=== PATIENT | female | born 1995 | race Caucasian/White ===

== ENCOUNTER 2025-01-02 19:44 | Emergency (ER) | payer OTHER, SELFPAY ==
--- NOTE | ~2025-01-02 | XR_ITS ---
XR hand LT 2V 01/03/2025 00:33 INDICATION: Left hand injury PROCEDURE: 3 views left hand COMPARISON: No prior studies for comparison. FINDINGS: Fracture, dislocation or subluxation is not identified. The soft tissues appear within norm al limits. No foreign bodies are identified. IMPRESSION: 1: NO ACUTE BONE OR JOINT ABNORMALITY IDENTIFIED. Reviewed, dictated and finalized at location A.
[2025-01-02 19:48] VITALS: BP 161/107; PULSE 110; RESP 18; TEMP 36.4; O2SAT 100
--- NOTE | 2025-01-02 19:59 | PC.NURSE ---
wound cleaned and pressure dressing applied
[2025-01-02 21:52] VITALS: BP 163/114; PULSE 96; RESP 20; TEMP 36.3; O2SAT 100
--- OUTSIDE RECORDS SUMMARY | 2025-01-03 00:20 | XMS_ITS | Encounter Summary ---
Author Organization [facility] Address [address] [facility] [place] [address] Care Team Providers Care Turbo Operator Name Role Phone Preethi James MD Unavailable [phone] Barbara Villalobos MD Primary Care Provider Encounter Details Date Type Department Care Team (Late st Contact Info) Description 12/25/2024 Results Follow-Up [facility] - Family Medicine [address], [address] [phone] Barbara Villalobos MD [address] [place] [address] Social History Tobacco Use Types Packs/Day Years Used Date Smoking Tobacco: Never Smokeless Tobacco: Never Alcohol Use Standard Drinks/Week Comments Yes 3 (1 standard drink = 0.6 oz pur e alcohol) PHQ-2 Answer Date Recorded Patient Health Questionnaire-2 Score 2 12/23/2024 Comments Unknown Sex and Gender Information Value Date Recorded Sex Assigned at Not on file 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 No significant abnormalities, based on your fasting lipid profile we recommend low-fat/cholesterol diet for instance Mediterranean diet. I will discuss results on follow-up visit documented in this encounter Plan of Treatment Upcoming Encounters Date Type Department Care Team (Late st Contact Info) Description 03/25/2025 8:40 AM CDT Office Visit [facility] - Family Medicine [address] [phone] Barbara Villalobos MD [address] [place] [address] documented as of this encounter Visit Diagnoses Not on filedocumented in this encounter Care Teams Turbo Operator Relationship Specialty Start Date End Date Preethi James MD [address] [place] [phone] PCP - Attributed-[facility] STL 06/18/24 Barbara Villalobos MD [address] [place] [address] PCP - General Internal Medicine 12/23/24 documented as of this encounter
--- OUTSIDE RECORDS SUMMARY | 2025-01-03 00:20 | XMS_ITS | Clinical Summary ---
Author Organization [facility] Address [address] [facility] [place] [address] Care Team Providers Care Monotype Keyboard Operator Name Role Phone Preethi James MD Unavailable [phone] Barbara Villalobos MD Primary Care Provider Source Comments [facility] [employer],non-owned Affiliates and Associated Physician Practices is amultiple site organization consisting of ambulatory clinics and hospital sitesin [place], [place], [place] and [place]. This disclosure is being madepursuant to the Care Everywhere program and may not contain all information available regarding this patient. Last updated 18.[facility] [employer] Allergies No known active allergies Medications * Be aware that medications may not be up to date on this document. Alwaysverify current medications with the patient. tirzepatide (Zepbound) 10 MG/0.5ML injection Inject 10 (ten) mg subcutaneously every 7 days (once a week) Active vilazodone (Viibryd) 40 MG tablet TAKE 1 TABLET BY MOUTH DAILY WITH FOOD 90 tablet 1 12/24/19 25 Active amphetamine-dext roamphetamine XR 24hr (Adderall XR) 30 MG capsuleIndicatio ns:Attention deficit hyperactivity disorder (ADHD), combined type Take 1 (one) capsule by mouth 2 times daily 60 capsule 5 8:18 AM CDT 12/24/19 25 Active buPROPion XL 24hr (Wellbutrin-XL) 300 MG tablet Take 1 (one) tablet by mouth once daily 90 tablet 1 12/24/19 25 Active hydrOXYzine HCl (Atarax) 25 MG tablet Take 1 (one) tablet by mouth every 8 hours as needed 90 tablet 1 12/24/19 25 Active traZODone (Desyrel) 50 MG tablet Take 1 (one) tablet by mouth at bedtime 90 tablet 1 12/24/19 25 Active metoprolol succinate XL 24hr (Toprol XL) 100 MG tablet Take 1 (one) tablet by mouth once daily 90 tablet 1 12/24/19 25 Active vilazodone (Viibryd) 40 MG tablet TAKE 1 TABLET BY MOUTH DAILY WITH FOOD 90 tablet 9:41 AM POT FISHER 07/29/19 25 025 Discontin ued(Reord er) amphetamine-dext roamphetamine XR 24hr (Adderall XR) 30 MG capsule Take 1 (one) capsule by mouth 11/04/19 25 025 Discontin ued(Reord er) buPROPion XL 24hr (Wellbutrin-XL) 300 MG tablet Take 1 (one) tablet by mouth once daily 11/24/19 25 025 Discontin ued(Reord er) hydrOXYzine HCl (Atarax) 25 MG tablet Take 1 (one) tablet by mouth every 8 hours as needed 04/17/20 24 025 Discontin ued(Reord er) metoprolol succinate XL 24hr (Toprol XL) 100 MG tablet Take 1 (one) tablet by mouth once daily 03/19/20 24 025 Discontin ued(Reord er) traZODone (Desyrel) 50 MG tablet Take 1 (one) tablet by mouth 08/31/19 25 025 Discontin ued(Reord er) Qelbree 200 MG capsule TAKE 1 CAPSULE BY MOUTH DAILY. SWALLOW WHOLE OR SPRINKLE CONTENTS OVER A TEASPOONFUL OF APPLESAUCE 11/27/19 25 025 Discontin ued(Clini amanda Decision) Active Problems Problem Noted Date Diagnosed Date Controlled substance agreement signed 12/23/2024 Class 3 severe obesity due t o excess calories with serious comorbidity and body mass index (BMI) of 45.0 to 49.9 in adult 12/23/2024 Primary hypertension 12/23/2024 Moderate episode of recurrent major depressive d isorder 12/23/2024 Attention deficit hyperactiv ity disorder (ADHD), combined type 12/23/2024 Vitamin D deficiency 12/23/2024 Encounters Date Type Department Care Team Description 12/25/2024 Results Follow-Up [facility] [address], [address] [place] [phone] Barbara Franks MD 12/23/2024 8:40 AM CDT Office Visit [facility] [address], [address] [place] [phone] Barbara Franks MD Encounter to establish care (Primary Dx); Healthcare maintenance; Class 3 severe obesity due to excess calories with serious comorbidity and body mass index (BMI) of 45.0 to 49.9 in adult (HCC); Primary hypertension; Moderate episode of recurrent major depressive disorder (HCC); Attention deficit hyperactivity disorder (ADHD), combined type; Vitamin D deficiency; Screening for diabetes mellitus; Controlled substance agreement signed 12/23/2024 Travel from Last 3 Months Immunizations Immunization Administration Dates Next Due Degreed primary monoval ent 12+ yr 0.3mL Purple cap 02/25/2021,02/04/2021 DTP HIB, HISTORIC VACCINE 12/07/1994 DTP, HISTORIC VACCINE 02/27/1994,1993,12/1993 HEP B VACCINE, ADULT 3 DOSE 1993, 4,1993 HIB VACCINE 02/27/1994,1993 INFLUENZA VACCINE, QUADR. (A FLURIA, FLUZONE QUADRIVALENT; 6MO+) (IIV4) 03/24/2021 INFLUENZA VACCINE, QUADR. (F LUZONE; FLULAVAL; FLUARIX; AFLURIA QUADRIVALENT; 6MO+), 0.5 ML (IIV4) 04/09/2022 MMR VACCINE 12/07/1994 POLIO OPV 02/27/1994,1993,1993 Family History Medical History Relation Name Comments Anxiety Disorder Father CAD (Coronary Artery Disease) Father Depression Father Hypertension Father Cancer - Breast Maternal Grandmother Cancer - Ovarian Maternal Grandmother Anxiety Disorder Mother Depression Mother Cancer - Lung Paternal Grandfather Relation Name Status Comments Father Alive Maternal Grandmother Mother Alive Paternal Grandfather Social History Tobacco Use Types Packs/Day Years Used Date Smoking Tobacco: Never Smokeless Tobacco: Never Tobacco Cessation:Counseling Given: Not Answered Alcohol Use Standard Drinks/Week Comments Yes 3 (1 standard drink = 0.6 oz pur e alcohol) PHQ-2 Answer Date Recorded Patient Health Questionnaire-2 Score 2 12/23/2024 Comments Unknown Sex and Gender Information Value Date Recorded Sex Assigned at Not on file Legal Sex Female 9:47 AM POT FISHER Gender Identity Not on file Sexual Orientation Not on file Last Filed Vital Signs Vital Sign Reading Time Taken Comments Blood Pressure 134/88 12/23/2024 8:42 AM CDT Pulse 74 12/23/2024 8:42 AM CDT Temperature 36.7 C (98 F) 12/23/2024 8:42 AM CDT Respiratory Rate - - Oxygen Saturation 99% 12/23/2024 8:42 AM CDT Inhaled Oxygen Concentration - - Weight 129.3 kg (285 lb) 12/23/2024 8:42 AM CDT Height 161.3 cm (5' 3.5) 12/23/2024 8:42 AM CDT Body Mass Index 49.69 12/23/2024 8:42 AM CDT Plan of Treatment Upcoming Encounters Date Type Department Care Team (Late st Contact Info) Description 03/25/2025 8:40 AM CDT Office Visit [facility] - Family Medicine [address], [address] [phone] Barbara Villalobos MD [address] [place] [address] Health Maintenance Due Date Last Done Comments DTAP/TDAP/TD VACCINES (5 - Tdap) 2004 12/07/1994, 02/27/1994, 1993, Additional history exists PAP SMEAR 2014 HPV VACCINE (1 - 3-dose SCDM series) 2020 COVID-19 VACCINE (3 - season) 2024 02/25/2021, 02/04/2021 INFLUENZA VACCINE (#1) 2025 04/09/2022, 2020 ZOSTER VACCINE (1 of 2) 2043 HEPATITIS B VACCINE Completed 1993, 1993, 1993 HIB VACCINE Completed 12/07/1994, 02/16, 1993 DEPRESSION SCREENING Completed 12/23/2024 HEPATITIS C SCREENING Completed 12/23/2024 HIV SCREENING Completed 12/23/2024 MENINGOCOCCAL (Group B) VACCINE SHARED DECISION-MAKING Aged Out No longer eligible based on patient's age to complete this topic MENINGOCOCCAL GROUPS A/C/Y/W VACCINE Aged Out No longer eligible based on patient's age to complete this topic PNEUMOCOCCAL VACCINE Aged Out No long er eligible based on patient's age to complete this topic Procedures Procedure Name Priority Date/Time Associated Diagnosis Comments DRUG ABUSE URINE SCREEN 10 Routine 12/23/2024 9:51 AM CDT Attention deficit hyperactivity disorder (ADHD), combined type VITAMIN D 25-HYDROXY Routine 12/23/2024 9:50 AM CDT Vitamin D deficiency HIV-1 HIV-2 ANTIBODY + HIV P24 AG PANEL Routine 12/23/2024 9:50 AM CDT Healthcare maintenance TSH REFLEX FREE T4 Routine 12/23/2024 9: 50 AM CDT Primary hypertension LIPID PROFILE Routine 12/23/2024 9:50 AM CDT Primary hypertension HEPATITIS C ANTIBODY W RFLX PCR Routine 12/23/2024 9:50 AM CDT Healthcare maintenance HEMOGLOBIN A1C Routine 12/23/2024 9:50 AM CDT Class 3 severe obesity due to excess calories with serious comorbidity and body mass index (BMI) of 45.0 to 49.9 in adult (HCC) Primary hypertension COMPREHENSIVE METABOLIC PANEL Routine 12/23/2024 9:50 AM CDT Primary hypertension Moderate episode of recurrent major depressive disorder (HCC) CBC W AUTO DIFFERENTIAL Routine 12/23/2024 9:50 AM CDT Primary hypertension Moderate episode of recurrent major depressive disorder (HCC) from Last 3 Months Results * DRUG ABUSE URINE SCREEN 10 (12/23/2024 9:51 AM CDT) Amphetamines Screen Urine Negative Cutoff=10 00 ng/mL [facility] INSURANCE BILL Barbiturates Screen Urine Negative Cutoff=20 0 ng/mL [facility] INSURANCE BILL Benzodiazepines Screen Urine Negative Cutoff=20 0 ng/mL [facility] INSURANCE BILL Cannabinoids Screen Urine Negative Cutoff=20 ng/mL [facility] INSURANCE BILL Cocaine Metabolite Screen Urine Negative Cutoff=30 0 ng/mL [facility] INSURANCE BILL Opiate Screen Urine Negative Cutoff=30 0 ng/mL [facility] INSURANCE BILL Comment:Opiate test includes Codeine, Morphine, Hydromorphone, Hydrocodone. Oxycodone/Oxymorpho ne Urine Negative Cutoff=10 0 ng/mL [facility] INSURANCE BILL Comment:Test includes Oxycod one and Oxymorphone Phencyclidine Screen Urine Negative Cutoff=25 ng/mL [facility] INSURANCE BILL Methadone Screen Urine Negative Cutoff=30 0 ng/mL [facility] INSURANCE BILL Propoxyphene Screen Urine Negative Cutoff=30 0 ng/mL [facility] INSURANCE BILL Creatinine Urine 111.9 20.0 - 300.0 mg/dL [facility] INSURANCE BILL pH Urine 8.7 4.5 - 8.9 [facility] INSURANCE BILL Note Comment [facility] INSURANCE BILL Comment: This assay provides a preliminary unconfirmed analytical test result that may be suitable for clinical management of patients in certain situations. Drug-test results should be interpreted in the context of clinical information. Patient metabolic variables, specific drug chemistry, and specimen characteristics can affect test outcome. Technical consultation is available if a test result is inconsistent with an expected outcome. Email: [email or web address] Urine URINE / Unknown 12/23/2024 9 :51 AM CDT 12/23/2024 Narrative [facility] INSURANCE BILL - 12/24/2024 9:08 PM CDT Performed at: - [facility] [address] [place], [place] [id number] Remote Inpatient Coder: Tori Marie PhD, Phone: [phone] Barbara Villalobos MD LAB - URINE CHEMISTRY O RDERABLES Final Result [facility] INSURANCE BILL [address] [place] [address] * HEPATITIS C ANTIBODY W RFLX PCR (12/23/2024 9:50 AM CDT) Pathologist [facility] Hepatitis C Antibody Non Reactive Non Reactive [facility] INSURANCE BILL Comment: Performed at: - [address] [id number] Remote Inpatient Coder: Wing Mckeon PhD, Phone: [phone] Interpretation Comment [facility] INSURANCE BILL Comment: Not infected with HCV unless early or acute infection is suspected (which may be delayed in an immunocompromised individual), or other evidence exists to indicate HCV infection. Blood BLOOD SPECIMEN / Unknown 12/23/2024 9:50 AM CDT 12/23/2024 Narrative [facility] INSURANCE BILL - 12/24/2024 10:10 AM CDT Performed at: [address] [id number] Remote Inpatient Coder: Wing Mckeon PhD, Phone: [phone] Barbara Villalobos MD LAB - CHEMISTRY ORDERAB LES Final Result Performing Organization Address City/[facility] Co de Phone Number [facility] INSURANCE BILL [address] [place] [address] * HIV-1 HIV-2 ANTIBODY + HIV P24 AG PANEL (12/23/2024 9:50 AM CDT) [facility] HIV Screen 4th Generation w Reflex Non Reactive Non Reactive [facility] INSURANCE BILL Comment: HIV-1/HIV-2 antibodies and HIV-1 p24 antigen were NOT detected. There is no laboratory evidence of HIV infection. HIV Negative Blood BLOOD SPECIMEN / Unknown 12/23/2024 9:50 AM CDT 12/23/2024 Narrative [facility] INSURANCE BILL - 12/24/2024 9:10 AM CDT Performed at: [address] [id number] Remote Inpatient Coder: Wing Mckeon PhD, Phone: [phone] Barbara Villalobos MD LAB - CHEMISTRY ORDERAB LES Final Result Performing Organization Address City/[facility] Co de Phone Number [facility] INSURANCE BILL [address] [place] [address] * TSH REFLEX FREE T4 (12/23/2024 9:50 AM CDT) Pathologist [facility] TSH 1.300 0.450 - 4.500 uIU/mL [facility] INSURANCE BILL Blood BLOOD SPECIMEN / Unknown 12/23/2024 9:50 AM CDT 12/23/2024 Narrative [facility] INSURANCE BILL - 12/24/2024 9:10 AM CDT Performed at: [address] [id number] Remote Inpatient Coder: Wing Mckeon PhD, Phone: [phone] us Barbara Villalobos MD LAB - CHEMISTRY ORDERAB LES Final Result Performing Organization Address [facility] de Phone Number [facility] INSURANCE BILL [address] [place] [address] * HEMOGLOBIN A1C (12/23/2024 9:50 AM CDT) [facility] Hemoglobin A1c 5.0 4.8 - 5.6 % [facility] INSURANCE BILL Comment: Prediabetes: 5.7 - 6.4 Diabetes: >6.4 Glycemic control for adults with diabetes: <7.0 Blood BLOOD SPECIMEN WITH EDTA / Unknown 12/23/2024 9:50 AM CDT 12/23/2024 Narrative [facility] INSURANCE BILL - 12/24/2024 7:09 AM CDT Performed at: - [address] [id number] Remote Inpatient Coder: Wing Mckeon PhD, Phone: [phone] us Barbara Villalobos MD LAB - CHEMISTRY ORDERAB LES Final Result Performing Organization Address City/[facility]/ZIP Co de Phone Number [facility] INSURANCE BILL [address] [place] [address] * VITAMIN D 25-HYDROXY (12/23/2024 9:50 AM CDT) Vitamin D, 25 Hydroxy 36.2 30.0 - 100.0 ng/mL [facility] INSURANCE BILL Comment: Vitamin D deficiency has been defined by the [place] of [employer] and an Endocrine Society practice guideline as a level of serum 25-OH vitamin D less than 20 ng/mL (1,2). The Endocrine Society went on to further define vitamin D insufficiency as a level between 21 and 29 ng/mL (2). 1. IOM ([place] of [employer]). 2010. Dietary reference intakes for calcium and D. [place]: The National Academies Press. 2. Antonio MF, Yuliet CUEVAS, Deepthi ULLOA, et al. Evaluation, treatment, and prevention of vitamin D deficiency: an Endocrine Society clinical practice guideline. JCEM. 2010; 96(7):1911-30. Blood BLOOD SPECIMEN / Unknown 12/23/2024 9:50 AM CDT 12/23/2024 Narrative [facility] INSURANCE BILL - 12/24/2024 7:09 AM CDT Performed at: [address] [place] [id number] Remote Inpatient Coder: Wing Mckeon PhD, Phone: [phone] us Barbara Villalobos MD LAB - CHEMISTRY ORDERAB LES Final Result [facility] INSURANCE BILL [address] [place] [address] * (ABNORMAL) CBC WITH DIFFERENTIAL (12/23/2024 9:50 AM CDT) WBC 11.4(H) 3.4 - 10.8 x10E3/uL [facility] INSURANCE BILL RBC 4.32 3.77 - 5.28 x10E6/uL [facility] INSURANCE BILL Hemoglobin 13.8 11.1 - 15.9 g/dL [facility] INSURANCE BILL Hematocrit 42.6 34.0 - 46.6 % [facility] INSURANCE BILL MCV 99(H) 79 - 97 fL [facility] INSURANCE BILL MCH 31.9 26.6 - 33.0 pg [facility] INSURANCE BILL MCHC 32.4 31.5 - 35.7 g/dL [facility] INSURANCE BILL RDW 13.3 11.7 - 15.4 % [facility] INSURANCE BILL Platelet Count 366 150 - 450 x10E3/uL [facility] INSURANCE BILL Granulocytes % 76 Not Estab. % [facility] INSURANCE BILL Lymphocytes % 16 Not Estab. % [facility] INSURANCE BILL Monocytes % 7 Not Estab. % [facility] INSURANCE BILL Eosinophils % 1 Not Estab. % [facility] INSURANCE BILL Basophils % 0 Not Estab. % [facility] INSURANCE BILL Granulocytes Absolute 8.6(H) 1.4 - 7.0 x10E3/uL [facility] INSURANCE BILL Lymphocytes Absolute 1.8 0.7 - 3.1 x10E3/uL [facility] INSURANCE BILL Monocytes Absolute 0.8 0.1 - 0.9 x10E3/uL [facility] INSURANCE BILL Eosinophils Absolute 0.1 0.0 - 0.4 x10E3/uL [facility] INSURANCE BILL Basophils Absolute 0.0 0.0 - 0.2 x10E3/uL [facility] INSURANCE BILL Immature Granulocytes 0 Not Estab. % [facility] INSURANCE BILL Immature Granulocytes Absolute 0.0 0.0 - 0.1 x10E3/uL [facility] INSURANCE BILL Blood BLOOD SPECIMEN / Unknown 12/23/2024 9:50 AM CDT 12/23/2024 Narrative [facility] INSURANCE BILL - 12/24/2024 7:09 AM CDT Performed at: [id number] [place], [place] [id number] Remote Inpatient Coder: Wing Mckeon PhD, Phone: [phone] us Barbara Villalobos MD LAB - HEMATOLOGY ORDERA BLES Final Result [facility] INSURANCE BILL [address] [place] [address] * COMPREHENSIVE METABOLIC PANEL (12/23/2024 9:50 AM CDT) [facility] Glucose 91 70 - 99 mg/dL [facility] INSURANCE BILL BUN 7 6 - 20 mg/dL [facility] INSURANCE BILL Creatinine 0.82 0.57 - 1.00 mg/dL [facility] INSURANCE BILL eGFR by CKD-EPI 98 >59 mL/min/1.7 3 [facility] INSURANCE BILL BUN/Creatinine Ratio 9 9 - 23 [facility] INSURANCE BILL Sodium 137 134 - 144 mmol/L [facility] INSURANCE BILL Potassium 4.6 3.5 - 5.2 mmol/L [facility] INSURANCE BILL Chloride 101 96 - 106 mmol/L [facility] INSURANCE BILL CO2 20 20 - 29 mmol/L [facility] INSURANCE BILL Calcium 9.3 8.7 - 10.2 mg/dL [facility] INSURANCE BILL Protein Total 7.2 6.0 - 8.5 g/dL [facility] INSURANCE BILL Albumin 4.6 3.9 - 4.9 g/dL [facility] INSURANCE BILL Globulin Total 2.6 1.5 - 4.5 g/dL [facility] INSURANCE BILL Bilirubin Total 0.5 0.0 - 1.2 mg/dL [facility] INSURANCE BILL Alkaline Phosphatase 104 44 - 121 IU/L [facility] INSURANCE BILL AST 24 0 - 40 IU/L [facility] INSURANCE BILL ALT 25 0 - 32 IU/L [facility] INSURANCE BILL Blood BLOOD SPECIMEN / Unknown 12/23/2024 9:50 AM CDT 12/23/2024 Narrative [facility] INSURANCE BILL - 12/24/2024 8:11 AM CDT Performed at: [id number] [place], [place] [id number] Remote Inpatient Coder: Wing Mckeon PhD, Phone: [phone] us Barbara Villalobos MD LAB - CHEMISTRY ORDERAB LES Final Result [facility] INSURANCE BILL [address] [place] [address] * (ABNORMAL) LIPID PROFILE (12/23/2024 9:50 AM CDT) [facility] Cholesterol 236(H) 100 - 199 mg/dL [facility] INSURANCE BILL Triglycerides 84 0 - 149 mg/dL [facility] INSURANCE BILL HDL Cholesterol 87 >39 mg/dL [facility]URANCE B[facility] VLDL Calculated 14 5 - 40 mg/dL [facility] INSURANCE BILL LDL Calculated 135(H) 0 - 99 mg/dL [facility] INSURANCE BILL Blood BLOOD SPECIMEN / Unknown 12/23/2024 9:50 AM CDT 12/23/2024 Narrative [facility] INSURANCE BILL - 12/24/2024 8:11 AM CDT [facility]formed [facility]: [facility] [address] [place], [place] [id number] Remote Inpatient Coder: Wing Mckeon PhD, Phone: [phone] us Barbara Villalobos MD LAB - CHEMISTRY ORDERAB LES Final Result [facility] INSURANCE BILL [address] [place] [address] from Last 3 Months Insurance [facility] Care Teams Monotype Keyboard Operator Relationship Specialty Start Date End Date Preethi James MD [address] [place] [phone] PCP - Attributed-[facility]HP STL 06/18/24 Barbara Villalobos MD [address] [place] [address] PCP - General Internal Medicine 12/23/24
--- NOTE | 2025-01-03 00:30 | ED_ITS ---
HPI - Wound/Laceration General Chief Complaint: Wound/Laceration Stated Complaint: sliced finger on wine glass Time Seen by Provider: 01/02/25 23:55 History of Present Illness HPI narrative: Patient is a 29-year-old female who presents to the ER with left hand 3rd and 4th digit lacerations. She reports she was drawing a wine glass at home when the stem broke off and sliced her two fingers. Patient endorses full range of motion. She endorses pain to the sites, but no radiating pain. Patient reports she is unsure when she last had her Tdap vaccination. She endorses a history of depression anxiety, for which she is medicated. Patient denies any previous injuries to her 3rd and 4th digits, significant swelling, or purulent drainage coming from the site. Related Data Allergies Allergy/AdvReac Type Severity Reaction Status Date / Time No Known Allergies Allergy Verified 01/03/25 00:41 Review of Systems Review of Systems: All systems reviewed & are unremarkable except as noted in HPI and below Exam Narrative: GENERAL: Well appearing, well-nourished, non-toxic, in no acute distress. HEAD: Normocephalic, atraumatic. NECK: Supple. No adenopathy, no masses. RESPIRATORY: Airway patent, respirations nonlabored. Clear to auscultation bilaterally, no rales, rhonchi, wheezing. CARDIOVASCULAR: Regular rate and rhythm without murmurs, rubs, or gallops. Peripheral pulses 2+ and equal bilaterally. ABDOMINAL: Soft, nontender, nondistended, no hepatosplenomegaly. Normoactive BS. MUSCULOSKELETAL: Moves all extremities. Strength/ROM intact without gross deformities. SKIN: Warm, dry, normal color. No rashes. Puncture wound to left 3rd digit palmar side in between dip and pip joints. Linear laceration to 4th digit approximately 1/2 cm. NEURO: A&O X3. Speech clear. Cranial nerves II-XII intact. No ataxic movements. PSYCHIATRIC: Appropriate mood and affect. Normal interaction. Course Vital Signs Vital signs: Vital Signs Temperature 36.4 C 01/02/25 19:48 Pulse Rate 110 H 01/02/25 19:48 Respiratory Rate 18 01/02/25 19:48 Blood Pressure 161/107 H 01/02/25 19:48 Pulse Oximetry 100 01/02/25 19:48 Oxygen Delivery Room Air 01/02/25 19:48 Temperature 36.3 C L 01/02/25 21:52 Pulse Rate 96 01/02/25 21:52 Respiratory Rate 20 01/02/25 21:52 Blood Pressure 163/114 H 01/02/25 21:52 Pulse Oximetry 100 01/02/25 21:52 Oxygen Delivery Room Air 01/02/25 19:48 Procedures Laceration Laceration 1: Date: 01/03/25 Time: 03:20 Site: hand Side (If applicable): left Size (cm): 1.5 Description: linear Depth: simple, single layer Local Anesthetic: lidocaine 1% Amount of anesthesia used (mL): 4 Pre-repair: irrigated extensively ====== Skin Level ====== Skin layer closed with: nylon Size (cm): 5-0 Number of sutures: 4 Technique: simple, interrupted ====== Subcutaneous Layer ====== ====== Muscle Layer ====== ====== Tendon Layer ====== Laceration 2: Date: 01/03/25 Time: 03:21 Site: hand Side (If applicable): left (middle finger) Size (cm): 0.5 Description: linear Depth: simple, single layer Local Anesthetic: lidocaine 1% Amount of anesthesia used (mL): 4 Pre-repair: irrigated extensively ====== Skin Level ====== Skin layer closed with: nylon Size (cm): 5-0 Number of sutures: 1 Technique: simple, interrupted ====== Subcutaneous Layer ====== ====== Muscle Layer ====== ====== Tendon Layer ====== MDM - Wound/Laceration MDM Narrative Medical decision making narrative: Patient is a 29-year-old female who presents to the ER with left hand 3rd and 4th digit lacerations. She reports she was drawing a wine glass at home when the stem broke off and sliced her two fingers. Patient endorses full range of motion. She endorses pain to the sites, but no radiating pain. Patient reports she is unsure when she last had her Tdap vaccination. She endorses a history of depression anxiety, for which she is medicated. Patient denies any previous injuries to her 3rd and 4th digits, significant swelling, or purulence drainage coming from the site. Labs Ordered: None necessary Imaging Ordered: Left hand x-ray Medications Ordered: Toradol 60 mg IM, Tdap, lidocaine 1% infiltrated Results: Patient's left hand x-ray indicates no acute abnormalities nor foreign bodes. Diagnosis: Left middle finger laceration, left ring finger laceration Patient Education/Shared MDM: Results of imaging shared with patient. Patient was given her Tdap vaccine here. Four sutures were placed in patient left ring finger, 1 suture was placed and patient's left middle finger. Patient tolerated procedure well. She endorses improvement of symptoms following medication administration. Patient strongly advised to follow-up with their PCP and 10-14 days for suture removal. She will be discharged home with a prescription for Mupirocin. Patient was advised to refrain from doing any heavy lifting while her sutures are in place. Strict return precautions provided. Patient verbalized understanding and is in agreement with plan. Vital signs stable at time of discharge. All questions answered. Differential Diagnosis Differential diagnosis: Likely laceration, abrasion and avulsion of skin Imaging Data Attestation: I personally reviewed and interpreted this imaging study as follows: Radiologist's impression: No acute abnormalities Discharge Plan Discharge Clinical Impression: Laceration, Injury of left ring finger, Injury of left middle finger Patient Disposition: Home Condition: Stable Instructions: Antibiotic Form, Care For Your Stitches (ED) Additional Instructions: Please return to the ER with any worsening symptoms. Follow-up with primary care provider in 10-14 days for suture removal. Please keep your wound clean and dry. You may place Mupirocin cream on the sites twice a day. Take all medications as prescribed, including regularly scheduled medications. You may use Tylenol and ibuprofen together for pain control over the next couple of days. Patient Language: Bulgarian Prescriptions: New mupirocin [Centany] 2 % ointment 1 applic topical BID Qty: 22 0RF Follow-up/Referrals: PHYSICIAN,[facility] [Primary Care Provider] - Stand Alone Forms: Work/School Release IP Time of Disposition: 03:27
[2025-01-03] MEDS: TETANUS,DIPHTHERIA,AC PERTUSSIS ADULT (0.5 ML) BOOSTRIX IM (00:39)
[2025-01-03] MEDS: KETOROLAC (*BKC) 60 MG/2 ML VIAL IM (00:39)
[2025-01-03 03:41] VITALS: BP 130/84; PULSE 100; RESP 18; O2SAT 100
== END 2025-01-03 03:43 | disposition home or self-care (01) ==
PROVIDERS: Emergency Provider Registered Nurse
DX: S61.213A Laceration without foreign body of left middle finger without damage to nail, initial encounter (principal); S61.215A Laceration without foreign body of left ring finger without damage to nail, initial encounter; Z23 Encounter for immunization; F41.9 Anxiety disorder, unspecified; F32.A Depression, unspecified; W25.XXXA Contact with sharp glass, initial encounter
CPT/HCPCS: 12001; 73120; 90471; 90715; 96372; 99283; J1885